=== PATIENT | male | born 1990 | race Caucasian/White ===

== ENCOUNTER 2017-04-10 01:11 | Emergency (ER) | payer OTHER ==
[2017-04-10] MEDS ORDERED: NO HOME MEDICATION XX (02:16)
[2017-04-10] MEDS ORDERED: FLOXIN10 M1 RIGHT EAR (02:38)
[2017-04-10] MEDS ORDERED: NORCO 5/3251 TAB PO (02:38)
== END 2017-04-10 02:41 ==
LOC: EDMED 01:11
DX: H72.91 Unspecified perforation of tympanic membrane, right ear (principal); F17.210 Nicotine dependence, cigarettes, uncomplicated